=== PATIENT | male | born 1995 | race Two or more races ===

== ENCOUNTER 2016-10-07 14:50 | Emergency (ER) | payer OTHER ==
[~2016-10-07] VITALS: Ht 188 cm; Wt 102.1 kg
[2016-10-07 14:56] VITALS: BP 120/72
--- NOTE | 2016-10-07 15:20 | PHYS DOC ---
Past Medical History Past Medical History: No Pertinent History Past Surgical History: Appendectomy Alcohol Use: None Drug Use: None Adult General Chief Complaint Chief Complaint: LOWEREXTREMITY INJURY [facility] HPI Patient is a 21 year old male walks into the emergency room today with complaint of low back pain and right thigh/knee pain after being involved in an accident at work 4 days ago. 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 He states that it pinned him for a short period of time but did not crush him. He states he's continue to have pain in his right thigh/knee and then complains of numbness and tingling down his left leg that comes from his back. He states that began yesterday. He denies saddle anesthesia or incontinence of urine and bowel. He denies previous history of spinal column or spinal cord injuries. He denies any history of bone forming disorders. Patient states that he saw the occupational health provider 2 days ago and had a physical exam performed. Patient states no images were done. He states that he continues to have pain and ulcers reason for coming to the emergency Department today. Review of Systems Review of Systems Constitutional: Denies fever or chills [] Eyes: Denies change in visual acuity, redness, or eye pain [] HENT: Denies nasal congestion or sore throat [] Respiratory: Denies cough or shortness of breath [] Cardiovascular: No additional information not addressed in HPI [] GI: Denies abdominal pain, nausea, vomiting, bloody stools or diarrhea [] : Denies dysuria or hematuria [] Musculoskeletal: Denies back pain or joint pain [] Integument: Denies rash or skin lesions [] Neurologic: Denies headache, focal weakness or sensory changes [] Endocrine: Denies polyuria or polydipsia [] Allergies Allergies Allergies Coded Allergies Type Severity Reaction Last Updated Verified No Known Drug Allergies 10/07/16 No Physical Exam Physical Exam Constitutional: Well developed, well nourished, no acute distress, non-toxic appearance. Patient walked to the exam room with a steady, unaided gait. HENT: Normocephalic, atraumatic, bilateral external ears normal, oropharynx moist, no oral exudates, nose normal. [] Eyes: PERRLA, EOMI, conjunctiva normal, no discharge. [] Neck: Normal range of motion, no tenderness, supple, no stridor. [] Cardiovascular:Heart rate regular rhythm, no murmur [] Lungs & Thorax: Bilateral breath sounds clear to auscultation [] Abdomen: Bowel sounds normal, soft, no tenderness, no masses, no pulsatile masses. [] Skin: Warm, dry, no erythema, no rash. [] Back: Patient's back is normal in appearance without any overlying skin lesions suggestive of shingles. There is no bruising or abrasions. There is tenderness to palpation the bilateral paraspinous soft tissues at the level of L5 upward to L2. There is no distinct midline tenderness. There is no palpable defect, deformity or spasm. Extremities: Bilateral lower legs are normal in appearance without any evidence of injury. There are no dystrophic changes to either lower extremity. Flexor and extensor function is intact at both knees. There are no high riding patella ballottement/effusion. Strength is equal and symmetric bilaterally. DTRs 2/6 bilaterally. Incidental finding of monitoring bracelet on his left ankle. Bilateral knees without any evidence of injury. Ligaments are stable solid endpoints. Both lower extremities are neurovascularly intact with capillary refill less than 2 seconds. Neurologic: Alert and oriented X 3, normal motor function, normal sensory function, no focal deficits noted. [] Psychologic: Affect normal, judgement normal, mood normal. [] Current Patient Data Vital Signs Vital Signs Date Time Temp Pulse Resp B/P Pulse Ox O2 Delivery O2 Flow Rate FiO2 10/07/16 14:56 98.1 94 16 99 Room Air 98.1 EKG EKG [] Radiology/Procedures Radiology/Procedures 3 views of patient's right knee and 3 views of patient's lumbosacral spine were performed with adequate technique. There is no evidence of malalignment or acute bony injury. Course & Med Decision Making Course & Med Decision Making Pertinent Labs and Imaging studies reviewed. (See chart for details) [] Dragon Disclaimer Dragon Disclaimer This electronic medical record was generated, in whole or in part, using a voice recognition dictation system. Departure Departure Impression: Primary Impression: Contusion of right leg Additional Impression: Lumbosacral strain Disposition: 01 HOME, SELF-CARE Condition: GOOD Patient Instructions: Contusion, [id number], Lumbosacral Strain Additional Instructions: 1. The x-rays of your right knee and your lower back here today are normal. 2. The examination of both knees and your lower back here today are normal. 3. Review the discharge instructions for self-care. 4. It is in your best interest to discuss the situation with your boss as well as follow-up with the latter involved with your jobs Workmen's Comp. program. 5. Until then, he can take 800 mg of ibuprofen every 8 hours or 500 mg of naproxen every 12 hours for the discomfort. Be sure to take either one with food or milk. Problem Qualifiers Primary Impression: Contusion of right leg Encounter type: initial encounter Qualified Code: S80.11XA - Contusion of right lower leg, initial encounter Additional Impression: Lumbosacral strain Encounter type: initial encounter Qualified Code: S39.012A - Strain of muscle, fascia and tendon of lower back, initial encounter MAURY QURESHI Oct 07, 2016 15:20
--- NOTE | 2016-10-07 16:00 | RAD ---
Lumbar spine, 3 views, 10/07/2016: History: Back pain, injury No fracture or dislocation is identified. The intervertebral disc spaces are well-maintained. The paraspinous soft tissues are unremarkable. IMPRESSION: No acute lumbar spine abnormality is detected. Right knee, 3 views, 10/07/2016: No fracture or dislocation is identified. The periarticular soft tissues are unremarkable. IMPRESSION: No acute right knee abnormality is detected.
== END 2016-10-07 15:59 | disposition home or self-care (01) ==
LOC: ER 14:50
DX: S39.012A Strain of muscle, fascia and tendon of lower back, initial encounter (principal); S80.11XA Contusion of right lower leg, initial encounter; W22.8XXA Striking against or struck by other objects, initial encounter; Y93.89 Activity, other specified; Y99.8 Other external cause status; Y92.89 Other specified places as the place of occurrence of the external cause
CPT/HCPCS: 72100; 73562; 99284